=== PATIENT | female | born 1970 | race Caucasian/White ===

== ENCOUNTER 2016-10-22 10:08 | Emergency (ER) | payer OTHER | END 2016-10-22 12:14 | disposition home or self-care (01) | LOC: D.ER 10:08 | DX: R22.9 Localized swelling, mass and lump, unspecified (principal); S01.112A Laceration without foreign body of left eyelid and periocular area, initial encounter; W19.XXXA Unspecified fall, initial encounter; Y93.89 Activity, other specified; Y92.89 Other specified places as the place of occurrence of the external cause; S02.2XXA Fracture of nasal bones, initial encounter for closed fracture ==

== ENCOUNTER 2017-07-21 12:52 | Inpatient (IN) | payer BC ==
[~2017-07-21] VITALS: Ht 152.4 cm; Wt 104.3 kg
[2017-07-21] VITALS: BP 143/69
--- NOTE | ~2017-07-21 | CN ---
PATIENT NAME:ALANNA WRIGHT MEDICAL RECORD: [id number] : 66 LOCATION:[id number] ADMIT DATE: 07/21/17 ACCOUNT: [id number] CONSULTING PHYSICIAN: ARASELI VIRAMONTES MD REFERRING PHYSICIAN: AUGUSTINA COMER MD DATE OF CONSULTATION: 07/23/2017 Pulmonary Consultation CONSULT REQUESTING PHYSICIAN: Shelley Brooke MD REASON FOR CONSULTATION: Pneumonia, asthma exacerbation. HISTORY OF PRESENT ILLNESS: Ms. Wright is a 46-year-old female who has history of asthma. According to the patient, she was not feeling well since last Friday. She was getting worse day by day. She has cough without much sputum production. She has no energy. Seen in Dr. Comer's office on Friday and the patient was directly admitted to the hospital after doing a chest x-ray. Now, she is feeling a little bit better. REVIEW OF SYSTEMS: Mainly in the history of present illness. The patient denies any posterior nasal drip. No gastroesophageal reflux symptoms. PAST MEDICAL HISTORY: 1. Asthma. 2. Hypertension. 3. Hypothyroidism. 4. Type 2 diabetes mellitus. 5. Hyperlipidemia. 6. Hypothyroidism. 7. Anxiety and depression. PAST SURGICAL HISTORY: 1. She had endometrial ablation surgery. 2. Ankle arthroscopic surgery. 3. Tonsillectomy. ALLERGIES: There are no known drug allergy. MEDICATIONS: She is on Rocephin IV, Zithromax IV. Her other medication is reviewed. PERSONAL AND SOCIAL HISTORY: The patient is a nonsmoker, nondrinker. FAMILY HISTORY: Noncontributory. PHYSICAL EXAMINATION: GENERAL: Now, the patient is lying comfortably in bed. She is not in acute distress. VITAL SIGNS: The blood pressure is 119/61, pulse is 80, respiration is 16, temperature is 97.9, SpO2 is 94% on room air. HEENT: Conjunctivae are pink. Sclerae are not icteric. NECK: Supple, no JVD. CHEST: Excursion is minimal on both sides. There are crackles, wheeze on forceful expiration. CONSULT REPORT [id number] ALANNA WRIGHT HEART: Rhythm regular, normal sound. No murmur. ABDOMEN: Soft, bowel sounds present. No hepatosplenomegaly. RECTAL: Deferred. EXTREMITIES: No cyanosis, no clubbing, no pedal edema. SKIN: Warm, normal turgor. CENTRAL NERVOUS SYSTEM: The patient is awake and alert. There is no obvious cranial nerve abnormality. The gait was not tested. CHEST RADIOGRAPH: There is patchy infiltrate in the right lung most markedly along the right mid lung region. There is small right pleural effusion. There is also an infiltrate in the left upper lobe. The CTA was negative for PE. LABORATORY DATA: CBC: The WBC is 19,000 on admission, hemoglobin 12.9, hematocrit 38.7, the platelet count is 257. IMPRESSION: 1. Pneumonia, right middle lobe, lower lobe and left upper lobe, patchy in nature, most likely community-acquired pneumonia. 2. Acute exacerbation of asthma. 3. Leukocytosis. 4. Right pleural effusion, parapneumonic. 5. Dyspnea. 6. Type 2 diabetes mellitus. RECOMMENDATION: 1. Continue Zithromax and Rocephin. Start on Xopenex and ipratropium nebulizer, Brovana and budesonide nebulizer. 2. Singulair 10 mg a day. 3. Mucinex DM 2 tablets b.i.d. 4. Supplemental oxygen if required. 5. I will hold on steroid as the patient had no significant wheezing and the patient is diabetic. Follow up labs and chest radiograph. Dr. Brooke, thank you for involving me in the care of Ms. Wright. TRANSINT:[id number] Voice Confirmation ID: [id number] DOCUMENT ID: [id number] ARASELI VIRAMONTES MD at 1806 CC: AUGUSTINA COMER MD [id number] DICTATION DATE: 07/23/17 1635 SKID ADZER: 07/23/172001 DIS IN 07/24/17 [facility] [address] [place] [place] [address]
[2017-07-21 13:44] LABS: BASOPHILS 0.6 % (0-2); EOSINOPHILS 0.1 % (0-7); HEMATOCRIT 38.7 % (36.0-48.0); HEMOGLOBIN 12.9 g/dL (12-16); IMMATURE GRANULOCYTES 4.1 % (0-5); LYMPHOCYTES 9.7 % (15-50); MCH 28.3 pg (26.0-34.0); MCHC 33.3 g/dL (31.0-37.0); MCV 84.9 fL (80.0-100.0); MEAN PLATELET VOLUME 9.4 fL (7.4-10.4); MONOCYTES 10.5 % (2-11); PLATELET COUNT 257 10x3/uL (130-400); RBC 4.56 10x6/uL (4.00-5.40); RDW 15.1 % (11.5-14.5)
[2017-07-21 13:50] VITALS: BP 140/75; Ht 152.4 cm; Wt 104.3 kg
[2017-07-21 13:59] LABS: ALBUMIN 2.5 g/dL (3.4-5.0); ALKALINE PHOSPHATASE 136 U/L (46-116); ALT (SGPT) 45 U/L (10-68); CALC OSMOLALITY 277 mosm/kg (275-300); CALCIUM 9.1 mg/dL (8.5-10.1); CARBON DIOXIDE 16.2 mmol/L (21.0-32.0); CHLORIDE - SERUM 96 mmol/L (98-107); CREATININE - SERUM 0.8 mg/dL (0.6-1.3); GLUCOSE 233 mg/dL (74-106); PROTEIN - SERUM 8.1 g/dL (6.4-8.2); SODIUM 135 mmol/L (136-145); UREA NITROGEN 16 mg/dL (7-18); eGFR NON AFRICAN AMERICAN 81 mL/min (90-120)
[2017-07-21 14:07] LABS: C-REACTIVE PROTEIN 60.6 mg/dL (0.0-0.9)
[2017-07-21] MEDS ORDERED: GLUCOPHAGE500 MG PO (15:43)
[2017-07-21] MEDS ORDERED: ONCOLOGY MOUTHWA5 ML PO (15:50)
[2017-07-21] MEDS ORDERED: PHENERGAN25 M1 PO (15:51)
[2017-07-21] MEDS ORDERED: JARDIANCE25 MG PO (15:54)
[2017-07-21] MEDS ORDERED: EXFORGE HCT 101 EAC2 PO (15:54)
[2017-07-21] MEDS ORDERED: SYNTHROID137 MCG PO (15:55)
[2017-07-21] MEDS ORDERED: PRAVACHOL40 MG PO (15:55)
[2017-07-21] MEDS ORDERED: BRINTELLIX10 MG PO (15:59)
[2017-07-21] MEDS ORDERED: NAPROSYN500 MG PO (16:00)
[2017-07-21] MEDS ORDERED: SYMBICORT 16010.2 GM INH (16:00)
[2017-07-21] MEDS ORDERED: FLUTICASONE PRO16 GM NASAL (16:02)
[2017-07-21 19:38] LABS: CKMB 0.7 U/L (0.0-3.6); CREATINE KINASE 95 UL (21-215); TROPONIN-I < 0.017 ng/mL (0.000-0.060)
[2017-07-21 20:00] VITALS: BP 147/57
[2017-07-22 01:16] LABS: CREATINE KINASE 114 UL (21-215); TROPONIN-I < 0.017 ng/mL (0.000-0.060)
[2017-07-22 04:10] VITALS: BP 138/64
[2017-07-22 06:20] LABS: BASOPHILS 0.6 % (0-2); EOSINOPHILS 0.4 % (0-7); HEMATOCRIT 33.7 % (36.0-48.0); HEMOGLOBIN 11.2 g/dL (12-16); IMMATURE GRANULOCYTES 6.1 % (0-5); LYMPHOCYTES 14.7 % (15-50); MCH 27.9 pg (26.0-34.0); MCHC 33.2 g/dL (31.0-37.0); MEAN PLATELET VOLUME 9.3 fL (7.4-10.4); MONOCYTES 13.5 % (2-11); NEUTROPHILS 64.7 % (40-80); PLATELET COUNT 248 10x3/uL (130-400); RBC 4.01 10x6/uL (4.00-5.40); RDW 15.1 % (11.5-14.5); WBC 14.9 10x3/uL (4.8-10.8)
[2017-07-22 06:56] LABS: ALBUMIN 2.1 g/dL (3.4-5.0); ALKALINE PHOSPHATASE 113 U/L (46-116); ALT (SGPT) 42 U/L (10-68); CALCIUM 8.4 mg/dL (8.5-10.1); CHLORIDE - SERUM 103 mmol/L (98-107); CKMB 0.9 U/L (0.0-3.6); CREATINE KINASE 114 UL (21-215); CREATININE - SERUM 0.7 mg/dL (0.6-1.3); GLUCOSE 200 mg/dL (74-106); SODIUM 140 mmol/L (136-145); TROPONIN-I < 0.017 ng/mL (0.000-0.060); eGFR NON AFRICAN AMERICAN > 90 mL/min (90-120)
[2017-07-22 07:00] LABS: CALC OSMOLALITY 283 mosm/kg (275-300); UREA NITROGEN 11 mg/dL (7-18)
[2017-07-22 07:28] LABS: APPEARANCE CLEAR (CLEAR); BILIRUBIN NEGATIVE (NEGATIVE); COLOR YELLOW (YELLOW); GLUCOSE 1000 mg/dL (NEGATIVE); KETONE MODERATE mg/dL (NEGATIVE); NITRITE NEGATIVE (NEGATIVE); PROTEIN NEGATIVE (NEGATIVE); SPECIFIC GRAVITY 1.015 (1.005-1.020); UROBILINOGEN NORMAL (NORMAL)
[2017-07-22 07:31] LABS: BACTERIA FEW /hpf (NONE SEEN); EPITHELIAL CELLS 0-5 /hpf (0-5); RED CELLS - URINE 0-5 /hpf (0-5); WHITE CELLS - URINE 0-5 /hpf (0-5); YEAST <1+ /hpf (NONE SEEN)
[2017-07-22 08:19] VITALS: BP 141/769
[2017-07-22 17:29] VITALS: BP 102/67
[2017-07-22 20:00] VITALS: BP 135/76
[2017-07-23] VITALS: BP 129/46
[2017-07-23 04:00] VITALS: BP 130/50
[2017-07-23 05:51] LABS: BASOPHILS 0.8 % (0-2); EOSINOPHILS 2.6 % (0-7); HEMATOCRIT 33.5 % (36.0-48.0); IMMATURE GRANULOCYTES 11.4 % (0-5); MCHC 32.8 g/dL (31.0-37.0); MCV 85.2 fL (80.0-100.0); MEAN PLATELET VOLUME 9.1 fL (7.4-10.4); MONOCYTES 11.9 % (2-11); NEUTROPHILS 49.3 % (40-80); PLATELET COUNT 269 10x3/uL (130-400); RBC 3.93 10x6/uL (4.00-5.40); WBC 12.8 10x3/uL (4.8-10.8)
[2017-07-23 06:17] LABS: ALBUMIN 1.9 g/dL (3.4-5.0); ALKALINE PHOSPHATASE 108 U/L (46-116); CALCIUM 8.5 mg/dL (8.5-10.1); CARBON DIOXIDE 24.9 mmol/L (21.0-32.0); CHLORIDE - SERUM 104 mmol/L (98-107); CREATININE - SERUM 0.6 mg/dL (0.6-1.3); PROTEIN - SERUM 6.8 g/dL (6.4-8.2); SODIUM 141 mmol/L (136-145); eGFR NON AFRICAN AMERICAN > 90 mL/min (90-120)
[2017-07-23 06:21] LABS: ALT (SGPT) 66 U/L (10-68); CALC OSMOLALITY 280 mosm/kg (275-300); GLUCOSE 143 mg/dL (74-106); POTASSIUM - SERUM 2.9 mmol/L (3.5-5.1); UREA NITROGEN 7 mg/dL (7-18)
[2017-07-23 08:24] VITALS: BP 120/66
[2017-07-23 10:09] LABS: MAGNESIUM - SERUM 2.5 mg/dL (1.8-2.4); PHOSPHOROUS 3.8 mg/dL (2.5-4.9)
[2017-07-23 12:18] VITALS: BP 119/61
[2017-07-23 16:52] VITALS: BP 149/84
[2017-07-23 20:48] VITALS: BP 149/77
[2017-07-24 00:41] VITALS: BP 112/56
[2017-07-24 04:38] VITALS: BP 118/55
[2017-07-24 04:50] LABS: BASOPHILS 2.1 % (0-2); EOSINOPHILS 3.4 % (0-7); HEMATOCRIT 33.7 % (36.0-48.0); HEMOGLOBIN 11.1 g/dL (12-16); IMMATURE GRANULOCYTES 16.7 % (0-5); LYMPHOCYTES 27.1 % (15-50); MCH 28.2 pg (26.0-34.0); MCHC 32.9 g/dL (31.0-37.0); MCV 85.8 fL (80.0-100.0); MONOCYTES 8.8 % (2-11); NEUTROPHILS 41.9 % (40-80); PLATELET COUNT 277 10x3/uL (130-400); RBC 3.93 10x6/uL (4.00-5.40); RDW 15.1 % (11.5-14.5)
[2017-07-24 05:13] LABS: ALBUMIN 2.1 g/dL (3.4-5.0); ALKALINE PHOSPHATASE 107 U/L (46-116); ALT (SGPT) 68 U/L (10-68); CALC OSMOLALITY 281 mosm/kg (275-300); CALCIUM 8.4 mg/dL (8.5-10.1); CARBON DIOXIDE 26.9 mmol/L (21.0-32.0); CHLORIDE - SERUM 105 mmol/L (98-107); CREATININE - SERUM 0.6 mg/dL (0.6-1.3); GLUCOSE 185 mg/dL (74-106); POTASSIUM - SERUM 3.8 mmol/L (3.5-5.1); PROTEIN - SERUM 6.9 g/dL (6.4-8.2); SODIUM 140 mmol/L (136-145); UREA NITROGEN 6 mg/dL (7-18); eGFR NON AFRICAN AMERICAN > 90 mL/min (90-120)
[2017-07-24 08:41] VITALS: BP 108/59
[2017-07-24 11:29] VITALS: BP 141/62
[2017-07-24] MEDS ORDERED: TESSALON PERLE100 MG PO (12:48)
[2017-07-24] MEDS ORDERED: SINGULAIR10 MG PO (12:48)
[2017-07-24] MEDS ORDERED: MUCINEX DM ER1 EAC1 PO (12:49)
[2017-07-24] MEDS ORDERED: ZITHROMAX500 MG PO (12:51)
[2017-07-24] MEDS ORDERED: OMNICEF300 MG PO (12:51)
== END 2017-07-24 14:38 | disposition home or self-care (01) | DRG 194 ==
LOC: D.MS 12:52
PROVIDERS: Emergency Medicine; Family Medicine
DX: J18.9 Pneumonia, unspecified organism (principal); J90 Pleural effusion, not elsewhere classified; J45.901 Unspecified asthma with (acute) exacerbation; E86.0 Dehydration; E87.6 Hypokalemia; E11.65 Type 2 diabetes mellitus with hyperglycemia; R00.0 Tachycardia, unspecified; R79.82 Elevated C-reactive protein (CRP)